=== PATIENT | male | born 1985 | race Caucasian/White ===

== ENCOUNTER 2020-07-04 12:37 | Outpatient (REF) | payer OTHER, SELFPAY | END 2020-07-04 12:38 | disposition home or self-care (01) | LOC: HO.LAB 12:37 | PROVIDERS: Visit Provider Internal Medicine | DX: Z20.828 Contact with and (suspected) exposure to other viral communicable diseases (principal) | CPT/HCPCS: C9803; U0003 ==

== ENCOUNTER 2020-10-18 17:47 | Inpatient (IN) | payer BC, SELFPAY ==
--- NOTE | ~2020-10-18 | CT_ITS ---
EXAMINATION: CT ABDOMEN AND PELVIS WITH CONTRAST CLINICAL INFORMATION: Upper abdominal pain. COMPARISON: ERCP and abdominal ultrasound 02/04/2020 and abdominal MRI and CT abdomen pelvis 02/03/2020 TECHNIQUE: Multidetector volumetric images were obtained from the superior aspect of the liver through the pubic symphysis following administration 85 mL of Omnipaque 350 intravenous contrast. Sagittal and coronal reformatted images were obtained on the technologist's workstation. Oral contrast: No This CT examination was performed using dose optimization techniques as appropriate, variously including the following: *Automated exposure control *Adjustment of mA and/or kV according to patient size (this includes techniques or standardized protocols for targeted exams where dose is matched to indication/reason for exam; i.e. extremities or head) *Use of iterative reconstruction technique DLP: 645 mGy-cm FINDINGS: Visualized lung bases are well aerated. The liver demonstrates normal size, contour and attenuation. 3 mm hypodensity within the posterior right hepatic lobe is too small to accurately characterize. There is mild intrahepatic biliary ductal dilatation. The gallbladder is normal in appearance. The common bile duct is dilated measuring up to 1.3 cm. Common bile duct stent is in place but appears migrated into the distal common bile with only approximately 2 cm of the stent within the common bile duct, the remainder of the stent is within the duodenum. The pancreas is normal in appearance. The spleen and adrenal glands are unremarkable. Symmetrically enhancing kidneys without hydronephrosis. Stable 8 mm nonobstructing calculus within the lower pole the left kidney. The stomach is normal in appearance. Normal caliber loops of small bowel. Mild colonic diverticulosis without CT evidence to suggest active diverticulitis. Mild stool burden throughout the colon. Nonaneurysmal abdominal aorta. No gross retroperitoneal lymphadenopathy. The bladder is well-distended and normal in appearance. The prostate gland is not enlarged. No gross free pelvic fluid. No inguinal lymphadenopathy. Tiny fat-containing left inguinal hernia. No acute osseous abnormality. CT/CT abdomen pelvis w con IMPRESSION: 1. The common bile duct is dilated measuring up to 1.3 cm. Common bile duct stent is in place but appears migrated into the distal common bile with only approximately 2 cm of the stent within the common bile duct, the remainder of the stent is within the duodenum. 2. Unremarkable appearance of the pancreas. 3. 8 mm nonobstructing left renal calculus, stable. 4. Mild colonic diverticulosis.
--- NOTE | ~2020-10-18 | FL_ITS ---
EXAMINATION: XR FLUOROSCOPY WITH IMAGES CLINICAL INFORMATION: Upper abdominal pain. History of common bile duct stent. COMPARISON: Previous CT scan of the abdomen and pelvis most recent 10/18/2020, ERCP February 2020 and MR of the abdomen February 2020 TECHNIQUE: Fluoroscopy performed by Dr. Mariee. Fluoroscopy time: 5.5 minutes DAP: 29 mGycm2 Images: 3 FINDINGS: No common bile duct stent is seen. Initial image demonstrates a wire in the common bile duct. Second image demonstrates contrast opacification of a slightly dilated common bile duct. There is no contrast seen in the distal common bile duct and the distal most portion of the contrast opacified common bile left appears irregular. Final image demonstrates persistent dilatation of the proximal common bile duct and no contrast in the distal common bile duct. Appearance is concerning for a distal common bile duct stricture. Intrahepatic bile ducts are not imaged. FL/FL guidance in OR IMPRESSION: Fluoroscopy guidance for ERCP. Question distal common bile duct stricture.
[2020-10-18 18:20] VITALS: BP 128/96; PULSE 66; RESP 18; TEMP 37.1; O2SAT 99; BMI 31.0
[2020-10-18] MEDS: 0.9 % Sodium Chloride 1,000 ML 999 ML IV (19:06)
[2020-10-18] MEDS: ondansetron HCL 4 MG/2 ML VIAL IVPUSH (19:06)
--- NOTE | 2020-10-18 19:14 | ECG_ITS ---
Test Reason : CHEST PAIN Blood Pressure : / mmHG Vent. Rate : 054 BPM Atrial Rate : 054 BPM P-R Int : 208 ms QRS Dur : 094 ms QT Int : 428 ms P-R-T Axes : 042 -30 -08 degrees QTc Int : 405 ms Sinus bradycardia Left axis deviation Abnormal ECG When compared with ECG of 04-JAN-2020 15:18, No significant change was found Referred By: Reilly Colbert Electronically Signed By:RICKIE GREENBEGR MD
[2020-10-18] MEDS: Famotidine/PF 20 MG/2 ML VIAL IVPUSH (19:16)
[2020-10-18 19:23] VITALS: BP 153/108; PULSE 67; RESP 15; TEMP 37.1; O2SAT 99
--- NOTE | 2020-10-18 19:54 | ED.ABDPAIN ---
HPI - Abdominal Pain General Chief Complaint: Abdominal Pain Stated Complaint: abd pain Time Seen by Provider: 10/18/20 20:31 Source: patient Mode of arrival: ambulatory Limitations: no limitations History of Present Illness HPI narrative: Patient presents to ED for upper abdominal pain for the past 4 days with nausea. Patient states history of pancreatitis that was caused by gallstone. States he had stent placed and bowel duck. Patient states [id number] is similar. Patient denies any chest pain, shortness of breath, or lower abdominal pain. Related Data Home Medications Medication Instructions Recorded Confirmed No Known Home Meds 10/11/20 10/11/20 Allergies Allergy/AdvReac Type Severity Reaction Status Date / Time gadobutrol [From GADAVIST] Allergy Mild HIVES Verified 10/18/20 18:19 Review of Systems Review of Systems Yes all other systems are reviewed and are negative Constitutional: Reports as per HPI and Reports no additional constitutional complaints Eyes: Reports as per HPI and Reports no additional eye complaints Reports system reviewed and no additional complaints, except as documented and Reports as per HPI Cardiovascular: Reports as per HPI and Reports no additional cardiovascular complaints Respiratory: Reports as per HPI and Reports no additional respiratory complaints Gastrointestinal: Reports as per HPI, Reports no additional gastrointestinal complaints, Reports abdominal pain, Reports nausea and Reports vomiting Musculoskeletal: Reports no additional musculoskeletal complaints and Reports as per HPI Reports system reviewed and no additional complaints, except as documented and Reports as per HPI Psychiatric: Reports no additional psychiatric complaints and Reports as per HPI Physical Exam Vital Signs: Vital Signs: Last Vital Signs Temp 98.1 F 10/18/20 20:23 Pulse 59 10/18/20 20:23 Resp 18 10/18/20 20:23 BP 128/95 H 10/18/20 20:23 Pulse Ox 100 10/18/20 20:23 Body Mass Index 31.0 Const: General: cooperative, healthy appearing, comfortable, no acute distress, well developed, alert, awake and Physically active Orientation/consciousness: patient oriented x3 HENMT: Head: Yes normal to inspection, Yes No palpable skull fracture present, Yes normocephalic, Yes atraumatic and No abrasion Eyes: General: appearance normal, both eyes and all related structures Neck: Neck: Yes normal visual inspection, Yes full ROM, Yes no lymphadenopathy, Yes no meningeal signs, Yes trachea midline, Yes supple and No tender Chest: Chest palpation & inspection: normal inspection of the chest and normal palpation of entire chest wall Resp: Effort & Inspection: normal respiratory effort and able to speak in complete sentences Cardio: Jugular venous distension: no JVD Heart sounds: S1 normal heart sound present and S2 normal heart sound present GI: Inspection: No abdominal wall ecchymosis Palpation (GI): Soft to palpation, not firm, Tenderness to palpation present (GI) (Mild upper abdominal tenderness. Negative for guarding rigidity) not in the epigastrum, not in the LLQ, not in the RLQ, not in the LUQ, not in the RUQ, not at McBurney's point, not periumbilically, not suprapubicly, Haddad's sign negative, obturator sign negative, psoas sign negative, with no rebound tenderness and Rovsing's sign negative, no guarding and not rigid : General: No CVA tenderness Back/Spine/Pelvis: Back: no CVA tenderness, No CVA tenderness and No back tenderness Skin: General skin exam: no rashes or lesions noted, elasticity normal and turgor normal Neuro: General: patient oriented x3, no meningeal signs and CN's II-XI intact bilaterally Extrem: General: Yes normal to inspection and Yes full ROM Psych: Appearance: grossly normal and well kempt Course Course Course Narrative: Patient worked the best corrected status per patient will have labs click LFTs and lipase. Patient also had EKG and troponin. Patient Pepcid, Zofran, and IV fluids. Reevaluation(s) Reevaluation #1: Patient given morphine for pain. Patient was sent for CT scan to evaluate for possible gallstone pancreatitis/cholecystitis. Patient states he never had gallbladder removed. Patient have repeat troponin. Case signed out to RUBY Bob. Patient states feeling better Time: 21:19 MDM - Abdominal Pain MDM Narrative Medical decision making narrative: Pancreatitis Lab Data Result diagrams: 10/18/20 19:53 10/18/20 19:53 Labs: Lab Results 10/18/20 10/18/20 10/18/20 Range/Units 19:53 19:53 19:53 WBC 6.4 (4.8-10.8) X10*3/uL RBC 5.31 (4.60-5.80) X10*6/uL Hgb 15.1 (14.0-18.0) g/dl Hct 45.5 (42-52) % MCV 85.7 (80-98) fL MCH 28.4 (27.0-33.0) pg MCHC 33.2 (31.0-36.0) g/dl RDW 12.3 (11.0-16.0) % Plt Count 203 (160-400) X10*3/uL MPV 8.9 L (9.4-12.4) fL Immature Gran % (Auto) 0.3 (0.0-0.4) % Neut % (Auto) 64.4 (45-73) % Lymph % (Auto) 26.5 (20-40) % [place] % (Auto) 6.9 (2-11) % Eos % (Auto) 1.7 (0-4) % Baso % (Auto) 0.2 (0-2) % Lymph # (Auto) 1.7 (1.2-4.9) X10*3/uL [place] # (Auto) 0.4 (0.1-1.2) X10*3/uL Eos # (Auto) 0.1 (0.0-0.4) X10*3/uL Baso # (Auto) 0.0 (0.0-0.2) X10*3/uL Abs Immat Gran (auto) 0.02 (0.00-0.03) X10*3/uL Absolute Neuts (auto) 4.1 (2.0-8.3) X10*3/uL Absolute Nucleated RBC 0.000 (0.0-0.012) X10*3/uL Nucleated RBC % (auto) 0.0 (0.0-0.2) /100WBC PT 12.0 (10.8-13.0) SEC INR 1.0 (0.9-1.1) APTT 28.7 (24.1-38.0) SEC Sodium 138 (135-145) mmol/L Potassium 5.0 (3.3-5.1) mmol/L Chloride 104 (96-108) mmol/L Carbon Dioxide 29 (22-29) mmol/L Anion Gap 10 L (12-20) BUN 15 (9-16) mg/dL Creatinine 1.15 (0.5-1.4) mg/dL Estim Creat Clear Calc 102.1 Estimated GFR > 60 Random Glucose 96 (60-115) mg/dL Calcium 8.7 (8.4-10.2) mg/dL Total Bilirubin 0.9 (0.0-1.0) mg/dL Direct Bilirubin 0.4 (0.0-0.5) mg/dL AST 46 H (5-37) U/L ALT 77 H (0-40) U/L Alkaline Phosphatase 80 (39-117) U/L Troponin I High Sens (<3.5-35.0) ng/L Total Protein 7.0 (6.5-8.0) g/dL Albumin 4.3 (3.5-5.0) g/dL Lipase 6 L (8-78) U/L 10/18/20 Range/Units 19:53 WBC (4.8-10.8) X10*3/uL RBC (4.60-5.80) X10*6/uL Hgb (14.0-18.0) g/dl Hct (42-52) % MCV (80-98) fL MCH (27.0-33.0) pg MCHC (31.0-36.0) g/dl RDW (11.0-16.0) % Plt Count (160-400) X10*3/uL MPV (9.4-12.4) fL Immature Gran % (Auto) (0.0-0.4) % Neut % (Auto) (45-73) % Lymph % (Auto) (20-40) % [place] % (Auto) (2-11) % Eos % (Auto) (0-4) % Baso % (Auto) (0-2) % Lymph # (Auto) (1.2-4.9) X10*3/uL [place] # (Auto) (0.1-1.2) X10*3/uL Eos # (Auto) (0.0-0.4) X10*3/uL Baso # (Auto) (0.0-0.2) X10*3/uL Abs Immat Gran (auto) (0.00-0.03) X10*3/uL Absolute Neuts (auto) (2.0-8.3) X10*3/uL Absolute Nucleated RBC (0.0-0.012) X10*3/uL Nucleated RBC % (auto) (0.0-0.2) /100WBC PT (10.8-13.0) SEC INR (0.9-1.1) APTT (24.1-38.0) SEC Sodium (135-145) mmol/L Potassium (3.3-5.1) mmol/L Chloride (96-108) mmol/L Carbon Dioxide (22-29) mmol/L Anion Gap (12-20) BUN (9-16) mg/dL Creatinine (0.5-1.4) mg/dL Estim Creat Clear Calc Estimated GFR Random Glucose (60-115) mg/dL Calcium (8.4-10.2) mg/dL Total Bilirubin (0.0-1.0) mg/dL Direct Bilirubin (0.0-0.5) mg/dL AST (5-37) U/L ALT (0-40) U/L Alkaline Phosphatase (39-117) U/L Troponin I High Sens 5.3 (<3.5-35.0) ng/L Total Protein (6.5-8.0) g/dL Albumin (3.5-5.0) g/dL Lipase (8-78) U/L ECG Data Interpretation: Sinus bradycardia. Ventricular rate 54. Pr interval 208. QRS duration 94. QTC 405 Discharge Plan Discharge Clinical Impression: Acute pancreatitis Prescriptions: No Action No Known Home Meds RF: 0 PMFSH Past Medical History Medical History (Updated 10/18/20 @ 21:21 by RUBY Alfonso) History of pancreatitis Lumbar pain Obesity Right shoulder pain Surgical History History of appendectomy History of biliary duct stent placement Family History Family History Mother No problems noted. Father No problems noted. Social History Social History (Updated 10/11/20 @ 17:59 by Ro Hopper MD) Alcohol intake: current Alcohol intake frequency: 0-2 drinks per day Alcohol type: beer and hard liquor Smoking Status: Current every day smoker Tobacco Type: E-Cigarette Use of substances other than those prescribed or required for medical reasons: No Advance Directives: No Advance Directives Information Provided: Yes
[2020-10-18 19:58] LABS: MANUAL DIFF FLAG NO
[2020-10-18 20:23] VITALS: BP 128/95; PULSE 59; RESP 18; TEMP 36.7; O2SAT 100
[2020-10-18 20:27] LABS: Basophils Percent Auto 0.2 % (0-2); Eosinophils Absolute Auto 0.1 X10*3/uL (0.0-0.4); Eosinophils Percent Auto 1.7 % (0-4); Hematocrit 45.5 % (42-52); Hemoglobin 15.1 g/dl (14.0-18.0); Imm Gran Abs Auto 0.02 X10*3/uL (0.00-0.03); Imm Gran Pct Auto 0.3 % (0.0-0.4); Lymphocytes Absolute Auto 1.7 X10*3/uL (1.2-4.9); Lymphocytes Percent Auto 26.5 % (20-40); Mean Corpuscular HGB Conc 33.2 g/dl (31.0-36.0); Mean Corpuscular Hemoglobin 28.4 pg (27.0-33.0); Mean Corpuscular Volume 85.7 fL (80-98); Mean Platelet Volume 8.9 fL (9.4-12.4); Monocytes Absolute Auto 0.4 X10*3/uL (0.1-1.2); Monocytes Percent Auto 6.9 % (2-11); Neutrophils Absolute Auto 4.1 X10*3/uL (2.0-8.3); Neutrophils Percent Auto 64.4 % (45-73); Platelet Count 203 X10*3/uL (160-400); Red Blood Count 5.31 X10*6/uL (4.60-5.80); Red Cell Distribution Width 12.3 % (11.0-16.0); White Blood Count 6.4 X10*3/uL (4.8-10.8)
[2020-10-18 20:36] LABS: Alanine Aminotransferase 77 U/L (0-40); Albumin Level 4.3 g/dL (3.5-5.0); Alkaline Phosphatase 80 U/L (39-117); Anion Gap 10 (12-20); Aspartate Amino Transferase 46 U/L (5-37); Bilirubin Direct 0.4 mg/dL (0.0-0.5); Bilirubin Total 0.9 mg/dL (0.0-1.0); Blood Urea Nitrogen 15 mg/dL (9-16); Calcium 8.7 mg/dL (8.4-10.2); Carbon Dioxide 29 mmol/L (22-29); Chloride 104 mmol/L (96-108); Creatinine Clr Calc Pharmacy 102.1; Estimated Glomerular Filt Rate > 60; Glucose Random 96 mg/dL (60-115); Lipase 6 U/L (8-78); Sodium 138 mmol/L (135-145)
[2020-10-18 20:37] LABS: Partial Thromboplastin Time 28.7 SEC (24.1-38.0)
[2020-10-18 20:38] LABS: Troponin-I High Sensitivity 5.3 ng/L (<3.5-35.0)
[2020-10-18 22:00] VITALS: BP 128/95; PULSE 59; RESP 18; O2SAT 100
[2020-10-18 22:13] VITALS: BP 148/97; PULSE 59; RESP 18; TEMP 37.1; O2SAT 100
[2020-10-18 22:18] VITALS: RESP 15
[2020-10-18] MEDS: Morphine Sulfate 4 MG/ML CARTRIDGE IVPUSH (22:18)
[2020-10-18 23:47] LABS: Troponin-I High Sensitivity 4.8 ng/L (<3.5-35.0)
[2020-10-19] VITALS (20 sets, daily range): BP systolic 122–156; BP diastolic 54–105; PULSE 46–101; RESP 12–20; TEMP 36–36.9; O2SAT 95–100; BMI 31.7
--- NOTE | 2020-10-19 00:07 | PM.IMHP ---
History of Present Illness Date of Service: 10/19/20 Chief Complaint: Abdominal pain 35-year-old male With a past medical history of gallstone pancreatitis, status post CBD stent presented to the hospital today with a chief complaint of abdominal pain for the past 4 days. located in the epigastrium; gradually worsening Denies any chest pain palpitations. denies nausea and vomiting. Denies any fever chills cough. Denies any diarrhea. Denies any urinary symptoms. Mentions poor intake due to pain. Review of all other systems is negative except mentioned above ER course: For ER team patient takes of noted to have tenderness in her mostly in the epigastrium. CT scan 1.3 centimetres, CBD stent appears to be migrated to the distal CBD and also into the duodenum. Also noted 80 mm nonobstructing left renal calculus stable. ER team discussed with Dr. Garcia from Gastroenterology who recommended admission to Medicine Service for the will remove the stent in the morning after evaluation. [facility] Medical History History of pancreatitis Lumbar pain Obesity Right shoulder pain Family History Mother No problems noted. Father No problems noted. Surgical History History of appendectomy History of biliary duct stent placement Social History Household Members: Spouse Housing: Apartment Do you presently have visiting nurse or other home services: No Alcohol intake: current Alcohol intake frequency: 0-2 drinks per day Alcohol type: beer and hard liquor Smoking Status: Current every day smoker Tobacco Type: E-Cigarette Use of substances other than those prescribed or required for medical reasons: Yes Substance Use Type: Marijuana Substance Use Frequency: Occasionally Last Used Substance: Days (ago) Currently Displaying Signs/Symptoms of Drug Intoxication Withdrawal: No Any prior treatment program specific to substance use: No Have you been hit, kicked, punched, or otherwise hurt by someone within the past year? If so, by whom?: No Do you feel safe in your current relationship?: Yes Is there a partner from a previous relationship who is making you feel unsafe now?: No Are you made to feel afraid or neglected: No Advance Directives: No Advance Directives Information Provided: Yes Do you have thoughts of harming others: None Do you have a plan to hurt others: No Plan Recently lost weight without trying: No service: No Current occupational status: employed Meds Allergies Allergy/AdvReac Type Severity Reaction Status Date / Time gadobutrol [From GADAVIST] Allergy Mild HIVES Verified 10/18/20 18:19 Active Medications: Current Medications Generic Name Dose Route Start Last Admin Trade Name Freq PRN Reason Stop Dose Admin Hydromorphone HCl 0.5 mg 10/19/20 00:03 Hydromorphone Hcl 0.5 Mg/0.5 Ml Syringe IVPUSH Q4H PRN Pain, Severe (Pain Scale 7-10) Dextrose/Sodium Chloride 1,000 mls @ 100 mls/hr 10/19/20 00:15 D51/2ns IVCONT .Q10H RUBEN Sodium Chloride 3 ml 10/19/20 08:00 0.9 % Sodium Chloride Flush 3 Ml Syringe IVFLUSH Q[facility] Home Medications Medication Instructions Recorded Confirmed Last Taken Type ascorbic acid (vitamin C) [Vitamin 500 mg PO DAILY 10/19/20 10/19/20 Unknown History C] cholecalciferol (vitamin D3) 25 mcg PO DAILY 10/19/20 10/19/20 Unknown History multivitamin 1 tab PO DAILY 10/19/20 10/19/20 Unknown History Physical Exam Vital Signs and Narrative: Vital Signs: Last Vital Signs Temp 98.7 F 10/18/20 22:13 Pulse 59 10/18/20 22:13 Resp 15 10/18/20 22:18 BP 148/97 H 10/18/20 22:13 Pulse Ox 100 10/18/20 22:13 Body Mass Index 31.0 Resp: Other: Gen: Appears be in no acute distress HEENT: NCAT, Moist mucosa. Pulmonary: Vesicular breath sounds, fair air entry CVS: Normal S1-S2 Abdomen: BS+, Soft, mildly tender in the epigastrium; no guarding no rigidity Extremities: Warm well perfused Neuro: Alert and awake. Results Labs CBC and Chem 7: 10/19/20 09:21 10/19/20 09:21 Labs: Laboratory Results - last 24 hr 10/18/20 10/18/20 10/18/20 19:53 19:53 19:53 MCV 85.7 MCH 28.4 MCHC 33.2 RDW 12.3 Plt Count 203 MPV 8.9 L Immature Gran % (Auto) 0.3 Neut % (Auto) 64.4 Lymph % (Auto) 26.5 [place] % (Auto) 6.9 Eos % (Auto) 1.7 Baso % (Auto) 0.2 Lymph # (Auto) 1.7 [place] # (Auto) 0.4 Eos # (Auto) 0.1 Baso # (Auto) 0.0 Abs Immat Gran (auto) 0.02 Absolute Neuts (auto) 4.1 Absolute Nucleated RBC 0.000 Nucleated RBC % (auto) 0.0 PT 12.0 INR 1.0 APTT 28.7 Anion Gap 10 L Estim Creat Clear Calc 102.1 Estimated GFR > 60 Random Glucose 96 Calcium 8.7 Total Bilirubin 0.9 Direct Bilirubin 0.4 AST 46 H ALT 77 H Alkaline Phosphatase 80 Troponin I High Sens Total Protein 7.0 Albumin 4.3 Lipase 6 L 10/18/20 10/18/20 19:53 23:02 MCV MCH MCHC RDW Plt Count MPV Immature Gran % (Auto) Neut % (Auto) Lymph % (Auto) [place] % (Auto) Eos % (Auto) Baso % (Auto) Lymph # (Auto) [place] # (Auto) Eos # (Auto) Baso # (Auto) Abs Immat Gran (auto) Absolute Neuts (auto) Absolute Nucleated RBC Nucleated RBC % (auto) PT INR APTT Anion Gap Estim Creat Clear Calc Estimated GFR Random Glucose Calcium Total Bilirubin Direct Bilirubin AST ALT Alkaline Phosphatase Troponin I High Sens 5.3 4.8 Total Protein Albumin Lipase Imaging Radiologist's Impressions: Impressions Abdomen/Pelvis CT 10/18/20 21:04 IMPRESSION: 1. The common bile duct is dilated measuring up to 1.3 cm. Common bile duct stent is in place but appears migrated into the distal common bile with only approximately 2 cm of the stent within the common bile duct, the remainder of the stent is within the duodenum. 2. Unremarkable appearance of the pancreas. 3. 8 mm nonobstructing left renal calculus, stable. 4. Mild colonic diverticulosis. Assessment and Plan (1) Abdominal pain: Status: Resolved 35-year-old male with a past medical history of gallstone pancreatitis status post CBD stent presented to the hospital with a chief complaint of abdominal pain for [address] scan noted to have migrated CBD stent. Admitted to the hospital for further management. Abdominal pain: Likely in the setting of migration of the CBD stent. CBD also dilated to 1.[address] Gastroenterology recommended admission for possible CBD stent removal. Pain control. Supportive care. NPO IV fluids Mild transaminitis: Improved compared to prior values. Will continue to monitor. DVT prophylaxis: SCD boots Code status: Full code (2) Biliary stricture: Status: Acute (3) Elevated LFTs: Status: Acute
[2020-10-19] MEDS: HYDROmorphone HCl 0.5 MG/0.5 ML SYRINGE IVPUSH ×5 (00:30→22:04)
[2020-10-19] MEDS: Dextrose 5 % and 0.45 % NaCl 1,000 ML 100 ML IVCONT ×3 (01:55→21:17)
[2020-10-19 04:37] LABS: COVID-19 Test Negative (Negative)
--- NOTE | 2020-10-19 07:30 | PC.NURSE ---
pt a/o x 3 no sob/john noted skin pink warm dry speaks in full sentences. pt aware of plan of care for admission to hosp.
[2020-10-19] MEDS: 0.9 % Sodium Chloride Flush 3 ML SYRINGE IVFLUSH ×2 (07:44→17:40)
[2020-10-19 09:26] LABS: MANUAL DIFF FLAG NO
--- NOTE | 2020-10-19 09:26 | MHC.CM.PN ---
pt lives c his s.o. in their apt. he reports that he is independent in his care. his s.o. can help him c his needs if necessary, this will include a ride home at dc. pt denies the need for vna at dc. dc plan is home no svcs. cm to cont. to follow.
[2020-10-19 09:28] LABS: Basophils Percent Auto 0.1 % (0-2); Eosinophils Absolute Auto 0.1 X10*3/uL (0.0-0.4); Eosinophils Percent Auto 1.3 % (0-4); Hematocrit 44.8 % (42-52); Imm Gran Abs Auto 0.01 X10*3/uL (0.00-0.03); Imm Gran Pct Auto 0.1 % (0.0-0.4); Lymphocytes Absolute Auto 1.9 X10*3/uL (1.2-4.9); Lymphocytes Percent Auto 27.9 % (20-40); Mean Corpuscular HGB Conc 33.5 g/dl (31.0-36.0); Mean Corpuscular Hemoglobin 28.8 pg (27.0-33.0); Mean Corpuscular Volume 86.2 fL (80-98); Mean Platelet Volume 8.5 fL (9.4-12.4); Monocytes Absolute Auto 0.5 X10*3/uL (0.1-1.2); Monocytes Percent Auto 7.1 % (2-11); Neutrophils Absolute Auto 4.4 X10*3/uL (2.0-8.3); Neutrophils Percent Auto 63.5 % (45-73); Platelet Count 181 X10*3/uL (160-400); Red Cell Distribution Width 12.3 % (11.0-16.0); White Blood Count 6.9 X10*3/uL (4.8-10.8)
--- NOTE | 2020-10-19 09:51 | PC.NURSE ---
nurse to nurse given to antonio (alejo), pt aware of plan of care for admission to hosp.
[2020-10-19 09:57] LABS: Anion Gap 8 (12-20); Blood Urea Nitrogen 9 mg/dL (9-16); Calcium 8.5 mg/dL (8.4-10.2); Carbon Dioxide 31 mmol/L (22-29); Chloride 102 mmol/L (96-108); Estimated Glomerular Filt Rate > 60; Glucose Random 103 mg/dL (60-115); Potassium 4.1 mmol/L (3.3-5.1); Sodium 137 mmol/L (135-145)
--- NOTE | 2020-10-19 11:11 | PC.NURSE ---
Per Dr. Caban, patient does not need campus monitor. will change pt admission order from telemetry to medical/surgical.
--- NOTE | 2020-10-19 12:49 | HO.PM.IMPN ---
Subjective Subjective Date of Service: 10/19/20 Interval History: Patient seen and examined at bedside Patient was reporting some abdominal pain Constitutional Constitutional: Reports as per HPI and Reports no additional constitutional complaints Eyes Eyes: Reports as per HPI and Reports no additional eye complaints ENT Ears, Nose, Mouth, and Throat: Reports system reviewed and no additional complaints, except as documented and Reports as per HPI Cardiovascular Cardiovascular: Reports as per HPI and Reports no additional cardiovascular complaints Respiratory Respiratory: Reports as per HPI and Reports no additional respiratory complaints Gastrointestinal Gastrointestinal: Reports as per HPI, Reports no additional gastrointestinal complaints, Reports abdominal pain, Reports nausea and Reports vomiting Musculoskeletal Musculoskeletal: Reports no additional musculoskeletal complaints and Reports as per HPI Neurologic Neurologic: Reports system reviewed and no additional complaints, except as documented and Reports as per HPI Psychiatric Psychiatric: Reports no additional psychiatric complaints and Reports as per HPI Physical Exam Vital Signs: Vital Signs: Last Vital Signs Temp 97.2 F 10/19/20 11:54 Pulse 63 10/19/20 11:54 Resp 15 10/19/20 11:54 BP 122/88 10/19/20 11:54 Pulse Ox 97 10/19/20 11:54 Body Mass Index 31.0 Resp: Other: Gen: Appears be in no acute distress HEENT: NCAT, Moist mucosa. Pulmonary: Vesicular breath sounds, fair air entry CVS: Normal S1-S2 Abdomen: BS+, Soft, mildly tender in the epigastrium; no guarding no rigidity Extremities: Warm well perfused Neuro: Alert and awake. Objective Data Current Medications Generic Name Dose Route Start Last Admin Trade Name Freq PRN Reason Stop Dose Admin Hydromorphone HCl 0.5 mg 10/19/20 00:03 10/19/20 09:42 Hydromorphone Hcl 0.5 Mg/0.5 Ml Syringe IVPUSH 0.5 mg Q4H PRN Administration Pain, Severe (Pain Scale 7-10) Dextrose/Sodium Chloride 1,000 mls @ 100 mls/hr 10/19/20 00:15 10/19/20 11:34 D51/2ns IVCONT 100 mls/hr .Q10H RUBEN Administration Sodium Chloride 3 ml 10/19/20 08:00 10/19/20 07:44 0.9 % Sodium Chloride Flush 3 Ml Syringe IVFLUSH 3 ml QSHIFT RUBEN Administration Labs CBC & Chem 7: 10/19/20 09:21 10/19/20 09:21 Assessment and Plan (1) Abdominal pain: Status: Acute Assessment and Plan: 35-year-old male with a past medical history of gallstone pancreatitis status post CBD stent presented to the hospital with a chief complaint of abdominal pain for [address] scan noted to have migrated CBD stent. Admitted to the hospital for further management. Abdominal pain Likely in the setting of migration of the CBD stent. CT shows CBD dilatation 1.3 centimetres GI consulted Continue NPO for possible procedure by GI Continue IV fluids Mild transaminitis Trending down DVT prophylaxis: SCD boots Code status: Full code
--- NOTE | 2020-10-19 12:53 | P.EN_ITS ---
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 This was treated with a biliary stent and balloon dilation. He had a negative EUS and brushings of the stricture. He never came back for F/U at [facility] nor with me. He now presents with new upper abdominal pain, but no jaundice. The CT shows that the biliary stent is almost out of the CBD, although his LFT's and lipase are OK. He presently feels well and denies pain. His abdominal exam is benign. Rec: ERCP with [facility] today by Dr. Mariee to remove the stent, repeat cholangiograms, and decide re: need for further dilation and/or replacement of the biliary stent. Full consent has been obtained from the patient for this, including risks of bleeding, perforation, cholangitis, and pancreatitis. The patient understands and is comfortable with this plan. Thanks
[2020-10-19] MEDS: levoFLOXacin/D5W 500 MG/100 ML PIGGYBACK 100 MG IV (13:00)
--- NOTE | 2020-10-19 13:18 | HO.ANESPROP2 ---
COUNTS INCLUDE 234 BEDS AT THE [facility] Active Problems Active Problems: All Active Problems (Updated 10/19/20 @ 00:29 by Mati Denton MD) Abdominal pain (Acute) Acute pancreatitis (Acute) Lumbar pain (Acute) Right shoulder pain (Acute) Obesity (Acute) Past Medical History Medical History History of pancreatitis Lumbar pain Obesity Right shoulder pain Family History Family History Mother No problems noted. Father No problems noted. Surgical History Surgical History History of appendectomy History of biliary duct stent placement Social History Social History Household Members: Spouse Housing: Apartment Do you presently have visiting nurse or other home services: No Alcohol intake: current Alcohol intake frequency: 0-2 drinks per day Alcohol type: beer and hard liquor Smoking Status: Current every day smoker Tobacco Type: E-Cigarette Use of substances other than those prescribed or required for medical reasons: Yes Substance Use Type: Marijuana Substance Use Frequency: Occasionally Last Used Substance: Days (ago) Currently Displaying Signs/Symptoms of Drug Intoxication Withdrawal: No Any prior treatment program specific to substance use: No Have you been hit, kicked, punched, or otherwise hurt by someone within the past year? If so, by whom?: No Do you feel safe in your current relationship?: Yes Is there a partner from a previous relationship who is making you feel unsafe now?: No Are you made to feel afraid or neglected: No Advance Directives: No Advance Directives Information Provided: Yes Do you have thoughts of harming others: None Do you have a plan to hurt others: No Plan Recently lost weight without trying: No service: No Current occupational status: employed Meds Allergies Allergy/AdvReac Type Severity Reaction Status Date / Time gadobutrol [From GADAVIST] Allergy Mild HIVES Verified 10/18/20 18:19 Active Medications: Current Medications Generic Name Dose Route Start Last Admin Trade Name Freq PRN Reason Stop Dose Admin Hydromorphone HCl 0.5 mg 10/19/20 00:03 10/19/20 09:42 Hydromorphone Hcl 0.5 Mg/0.5 Ml Syringe IVPUSH 0.5 mg Q4H PRN Administration Pain, Severe (Pain Scale 7-10) Dextrose/Sodium Chloride 1,000 mls @ 100 mls/hr 10/19/20 00:15 10/19/20 11:34 D51/2ns IVCONT 100 mls/hr .Q10H RUBEN Administration Sodium Chloride 3 ml 10/19/20 08:00 10/19/20 07:44 0.9 % Sodium Chloride Flush 3 Ml Syringe IVFLUSH 3 ml QSHIFT RUBEN Administration Home Medications Medication Instructions Recorded Confirmed Last Taken Type ascorbic acid (vitamin C) [Vitamin 500 mg PO DAILY 10/19/20 10/19/20 Unknown History C] cholecalciferol (vitamin D3) 25 mcg PO DAILY 10/19/20 10/19/20 Unknown History multivitamin 1 tab PO DAILY 10/19/20 10/19/20 Unknown History Exam Exam Date and Time: October 19, 2020 1318 Height,Weight and Vital Signs: Height 5 ft 9 in Weight 97.522 kg Last Vital Signs Temp 97.9 F 10/19/20 13:06 Pulse 57 10/19/20 13:06 Resp 18 10/19/20 13:06 BP 139/84 10/19/20 13:06 Pulse Ox 98 10/19/20 13:06 Pertinent Lab Results Pertinent Lab Results: Laboratory Tests 10/18/20 10/18/20 10/18/20 19:53 19:53 19:53 WBC 6.4 RBC 5.31 Hgb 15.1 Hct 45.5 MCV 85.7 MCH 28.4 MCHC 33.2 RDW 12.3 Plt Count 203 MPV 8.9 L Immature Gran % (Auto) 0.3 Neut % (Auto) 64.4 Lymph % (Auto) 26.5 [place] % (Auto) 6.9 Eos % (Auto) 1.7 Baso % (Auto) 0.2 Lymph # (Auto) 1.7 [place] # (Auto) 0.4 Eos # (Auto) 0.1 Baso # (Auto) 0.0 Abs Immat Gran (auto) 0.02 Absolute Neuts (auto) 4.1 Absolute Nucleated RBC 0.000 Nucleated RBC % (auto) 0.0 PT 12.0 INR 1.0 APTT 28.7 Sodium 138 Potassium 5.0 Chloride 104 Carbon Dioxide 29 Anion Gap 10 L BUN 15 Creatinine 1.15 Estim Creat Clear Calc 102.1 Estimated GFR > 60 Random Glucose 96 Calcium 8.7 Total Bilirubin 0.9 Direct Bilirubin 0.4 AST 46 H ALT 77 H Alkaline Phosphatase 80 Troponin I High Sens Total Protein 7.0 Albumin 4.3 Lipase 6 L COVID-19 (PATRICIA) COVID-19 Clin Com 10/18/20 10/18/20 10/19/20 19:53 23:02 04:10 WBC RBC Hgb Hct MCV MCH MCHC RDW Plt Count MPV Immature Gran % (Auto) Neut % (Auto) Lymph % (Auto) [place] % (Auto) Eos % (Auto) Baso % (Auto) Lymph # (Auto) [place] # (Auto) Eos # (Auto) Baso # (Auto) Abs Immat Gran (auto) Absolute Neuts (auto) Absolute Nucleated RBC Nucleated RBC % (auto) PT INR APTT Sodium Potassium Chloride Carbon Dioxide Anion Gap BUN Creatinine Estim Creat Clear Calc Estimated GFR Random Glucose Calcium Total Bilirubin Direct Bilirubin AST ALT Alkaline Phosphatase Troponin I High Sens 5.3 4.8 Total Protein Albumin Lipase COVID-19 (PATRICIA) Negative COVID-19 Clin Com See Note 10/19/20 10/19/20 09:21 09:21 WBC 6.9 RBC 5.20 Hgb 15.0 Hct 44.8 MCV 86.2 MCH 28.8 MCHC 33.5 RDW 12.3 Plt Count 181 MPV 8.5 L Immature Gran % (Auto) 0.1 Neut % (Auto) 63.5 Lymph % (Auto) 27.9 [place] % (Auto) 7.1 Eos % (Auto) 1.3 Baso % (Auto) 0.1 Lymph # (Auto) 1.9 [place] # (Auto) 0.5 Eos # (Auto) 0.1 Baso # (Auto) 0.0 Abs Immat Gran (auto) 0.01 Absolute Neuts (auto) 4.4 Absolute Nucleated RBC 0.000 Nucleated RBC % (auto) 0.0 PT INR APTT Sodium 137 Potassium 4.1 Chloride 102 Carbon Dioxide 31 H Anion Gap 8 L BUN 9 Creatinine 0.97 Estim Creat Clear Calc 121.0 Estimated GFR > 60 Random Glucose 103 Calcium 8.5 Total Bilirubin Direct Bilirubin AST ALT Alkaline Phosphatase Troponin I High Sens Total Protein Albumin Lipase COVID-19 (PATRICIA) COVID-19 Clin Com Airway Mallampati Class: II TM Dist: >3cm Neck ROM: Full Assessment and Plan Assessment Anesthesia Assessment: Anesthesia Plan Discussed and Chart Reviewed Final Anesthetic Review NPO: Yes ASA Class: II Final Preanesthetic Review: No Changes in Pt Med Stat, Meds/Allgs Chart Reviewed, Consent Obtained/Reviewed and Anes Risks/Benef Reviewed Patient Risk: Low Procedure Risk: Low Assessment/Block/Sedation in SS: Assess/Block/Sedation-SS Anesthetic Plan Anesthetic Plan: GA Disposition: Standard PACU
--- NOTE | 2020-10-19 14:06 | MHC.SHP ---
Pre-Procedural Eval Section A The patient is an INPATIENT: Yes Changes since office visit: No Cold of Flu in the past 2 weeks, No New Medical Problems, No Changes in Medication and No Patient answered all questions The History & Physical has been completed within 30 days and I have reviewed it.: Yes Section B Chief Complaint: Abd pain Allergies: Allergies Allergy/AdvReac Type Severity Reaction Status Date / Time gadobutrol [From GADAVIST] Allergy Mild HIVES Verified 10/18/20 18:19 Plan I have reviewed the history and physical and performed a pertinent physical examination on my patient. No changes have occurred unless specified.
--- NOTE | 2020-10-19 15:14 | PM.OP ---
Brief Operative Note Date of Service: 10/19/20 Pre-op diagnosis: biliary stricture Post-op diagnosis: same Procedure: ERCP Surgeon: Neville Mariee Estimated blood loss (mL): 0 Pathology: other (biliary stricture brushings) Condition: stable Disposition: PACU
--- NOTE | 2020-10-19 15:19 | PM.EVENT ---
Event Note Date of Service: 10/19/20 Event Note: ERCP dictated biliary stent migrated, mostly in duodenum, removed with snare. cholangiogram showed 2.5 cm distal biliary stricture. balloon dilation done and brushings obtained 12 mm balloon used to sweep duct, no stones seen good drainage of clear bile, residual waist on distal cbd no stent placed. advance diet recheck lfts.
--- NOTE | 2020-10-19 16:28 | OP_ITS ---
SURGEON: Neville Mariee MD INDICATIONS: Biliary stricture. PREOPERATIVE DIAGNOSIS: POSTOPERATIVE DIAGNOSIS: PROCEDURE PERFORMED: ERCP with removal of biliary stent, balloon dilation of biliary stricture, and biliary stricture brushings. ESTIMATED BLOOD LOSS: COMPLICATIONS: ANESTHESIA: ASSISTANTS: SPECIMENS: MEDICATIONS: Monitored anesthesia care. DESCRIPTION OF PROCEDURE: History and physical performed. The risks and benefits of the procedure were explained to the patient. Informed consent was obtained. The patient was placed in the prone position with a wedge under the right shoulder. The Olympus therapeutic duodenoscope was introduced into the esophagus, stomach, and duodenum. Examination was performed. The scope was removed. He tolerated the procedure well and was taken to recovery area in stable condition. FINDINGS: Limited examination of the esophagus, stomach, and duodenum was within normal limits. There was a previously placed biliary stent protruding from the major papilla. The stent was in a migrated position with most of the stent present in the duodenum. The stent was removed by grasping the stent with a snare and removing the endoscope and snare from the patient. Next, the endoscope was reinserted. Cholangiography was obtained after passing a sphincterotome into the common bile duct without difficulty. The sphincterotomy appeared adequate. There was an approximately 2 to 2.5 cm distal biliary stricture. This was dilated with an 8 mm biliary balloon for 2 consecutive inflations over the distal bile duct. Next, cytology brushings were obtained. There was a questionable filling defect in the mid bile duct and a 12 mm balloon extraction catheter was passed. The balloon was inflated and the catheter passed through this stricture with minimal resistance. No stone was seen to be removed. There appeared to be excellent drainage from the common bile duct at this point, and there was still some stricturing present; however, it was judged adequate for drainage and no stent was reinserted. No pancreatogram was attempted or obtained. IMPRESSION: Biliary stricture, status post balloon dilation, brushings, and removal of migrated biliary stent. RECOMMENDATIONS: 1. Follow up the brushing results. 2. Monitor clinically. MD MORIAH Schmidt/GUY / [id number] MTDD
[2020-10-20] MEDS: HYDROmorphone HCl 0.5 MG/0.5 ML SYRINGE IVPUSH (02:42)
[2020-10-20 03:59] VITALS: BP 117/96; PULSE 97; RESP 20; TEMP 36.4; O2SAT 95
[2020-10-20 07:06] LABS: Alanine Aminotransferase 312 U/L (0-40); Albumin Level 4.4 g/dL (3.5-5.0); Alkaline Phosphatase 119 U/L (39-117); Aspartate Amino Transferase 231 U/L (5-37); Bilirubin Direct 1.5 mg/dL (0.0-0.5); Bilirubin Total 2.7 mg/dL (0.0-1.0); Total Protein 7.3 g/dL (6.5-8.0)
[2020-10-20 07:48] VITALS: BP 151/90; PULSE 83; RESP 16; TEMP 36.7; O2SAT 96
--- NOTE | 2020-10-20 09:00 | CONS_ITS ---
DATE OF SERVICE: 10/19/2020 REASON FOR CONSULTATION: Abdominal pain and history of previously placed biliary stent for biliary stricture. HISTORY OF PRESENT ILLNESS: History has been obtained from the patient and the medical records. The patient is a 35-year-old male whom I met last February for evaluation of alcohol-induced pancreatitis with resultant obstructive jaundice. His workup at that time revealed a distal biliary stricture on ERCP. Brushings from the stricture and a CA19-9 level was normal. Then, a biliary stent was placed for relief of the obstructive jaundice. Thereafter, he was referred to [facility] to Dr. Conn to perform an endoscopic ultrasound, which was unremarkable. There was no sign of any pancreatic mass. The biliary stricture was dilated with a balloon and a biliary stent was placed at that time again. He was supposed to follow up with Dr. Conn for further dilation of the biliary stricture and biliary stent removal, but he never came back for followup with him nor my office despite repeated attempts to contact him.. In any event, the patient reports he had been feeling very well, until he developed abdominal pain and came to the ER for evaluation. He did not notice any jaundice nor fevers. He denied having vomiting. His bowel movements had been regular and without any sign of bleeding. MEDICATIONS: At home included vitamins. Medications here in the hospital include acetaminophen, Dilaudid p.r.n., morphine p.r.n., Zofran p.r.n. 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 Previous alcohol abuse. He denies any medical problems, such as heart disease, diabetes, asthma, no stroke. PAST SURGICAL HISTORY: He has had an appendectomy. SOCIAL HISTORY: He is . 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 He vapes. He denies any significant alcohol use since summer. FAMILY HISTORY: Noncontributory. PHYSICAL EXAMINATION: GENERAL: Upon examination, the patient is pleasant, alert, comfortable male. HEENT: Anicteric sclerae. NECK: Supple. CHEST: Clear. CARDIAC: Normal S1, S2. ABDOMEN: Soft, nondistended. Bowel sounds are present. Nontender. There is no mass. LABORATORY DATA: Normal CBC with platelet count. Normal PT with INR. Normal electrolytes. BUN 9, creatinine 1.0, total bilirubin is 0.9, AST 46, ALT 77, alk phos 80, lipase 6. His CAT scan of the abdomen described the biliary stent to be partially migrated into the duodenum with only the distal portion of the common bile duct stent present in the distal portion of the bile duct. Pancreas appeared normal. IMPRESSION: Given the patient's clinical history, his pain may be likely due to the migrated biliary stent. His LFT's are unremarkable but the bile duct was dilated. At this point, he does need the stent removed. He will undergo an ERCP today with removal of the biliary stent. At that time, cholangiograms can be obtained to reinspect the area of the biliary stricture and perform balloon dilation if indicated. The procedure will be done by Dr. Mariee. Full consent has been obtained for this, including risks of bleeding, perforation, cholangitis, and pancreatitis. This has been discussed in detail with the patient and he is comfortable with this plan. In the meantime, he will be observed and receive supportive care. Thank you for this consultation. MD LONNY Butler/GUY / [id number] MTDShanthi
[2020-10-20] MEDS: Dextrose 5 % and 0.45 % NaCl 1,000 ML 100 ML IVCONT (09:01)
[2020-10-20] MEDS: oxyCODONE HCl Immed Release 5 MG TABLET PO (09:08)
--- NOTE | 2020-10-20 11:19 | P.PNGI_ITS ---
Subjective Subjective Date of Service: 10/20/20 Interval History: had some pain post procedure in RUQ, feels better today tolerated diet Physical Exam Vital Signs: Vital Signs: Last Vital Signs Temp 98.1 F 10/20/20 07:48 Pulse 83 10/20/20 07:48 Resp 16 10/20/20 07:48 BP 151/90 H 10/20/20 07:48 Pulse Ox 96 10/20/20 07:48 Body Mass Index 31.7 Objective Data Labs CBC & Chem 7: 10/19/20 09:21 10/19/20 09:21 Labs: Laboratory Results - last 24 hr 10/20/20 06:06 Total Bilirubin 2.7 H Direct Bilirubin 1.5 H AST 231 H ALT 312 H Alkaline Phosphatase 119 H D Total Protein 7.3 Albumin 4.4 Progress Note: A&P Assessment and plan (1) Biliary stricture: Status: Acute Assessment and Plan: doing well post ERCP lft elevations may be secondary to procedural interventions (cholangiography, stricture dilation, and balloon sweeps) as opposed to obstruction from strictur e. Should be ok for discharge and f/u lfts next week. Time Spent With Patient Time: Total time spent is greater than 50% in coordination of care (as documented) at patient's floor/unit and/or counseling patient: Time with patient: 15 - 24 minutes
[2020-10-20 11:28] VITALS: BP 131/95; PULSE 89; RESP 16; TEMP 36.6; O2SAT 97
--- NOTE | 2020-10-20 12:08 | P.DS_ITS ---
DS: Providers Provider Date of Service: 10/20/20 Date of admission: 10/19/20 00:03 Primary care physician: Ro Hopper MD Consults: 10/18/20 23:57 Consult to Gastroenterology Stat Consulting Provider: Juany Reyes Reason for consultation: CDB stent migration Has provider been notified: Yes 10/19/20 00:03 Consult to Gastroenterology Routine Consulting Provider: Juany Reyes Reason for consultation: Abd pain; hx CBD stent DS: Diagnosis Discharge Diagnosis (1) Biliary stricture: Status: Acute DS: Medications Discharge Medications Home Medications: Home Medications Medication Instructions Recorded Confirmed ascorbic acid (vitamin C) [Vitamin 500 mg PO DAILY 10/19/20 10/19/20 C] cholecalciferol (vitamin D3) 25 mcg PO DAILY 10/19/20 10/19/20 multivitamin 1 tab PO DAILY 10/19/20 10/19/20 DS: Summary Hospital Course Hospital Course: HPI 35-year-old male With a past medical history of gallstone pancreatitis, status post CBD stent presented to the hospital today with a chief complaint of abdominal pain for the past 4 days. located in the epigastrium; gradually worsening Denies any chest pain palpitations. denies nausea and vomiting. Denies any fever chills cough. Denies any diarrhea. Denies any urinary symptoms. Mentions poor intake due to pain. Review of all other systems is negative except mentioned above ER course: For ER team patient takes of noted to have tenderness in her mostly in the epigastrium. CT scan 1.3 centimetres, CBD stent appears to be migrated to the distal CBD and also into the duodenum. Also noted 80 mm nonobstructing left renal calculus stable. ER team discussed with Dr. Garcia from Gastroenterology who recommended admission to Medicine Service for the will remove the stent in the morning after evaluation. hospital course 35-year-old male admitted with abdominal pain, CT abdomen shows migration of CBD stent, LFTs were normal on admission, patient was seen by Gastroenterology, patient underwent ERCP with removal of stent, patient was also found to have CBD stricture balloon dilatation was done, patient's abdominal pain was resolved, patient was tolerating regular diet, patient's LFTs trended up post procedure, patient was seen by Gastroenterology Dr. Desai recommended LFT elevated LFTs likely secondary to post procedure, gastroenterology cleared patient for discharge, patient was stable discharged home patient will have repeat LFTs on 10/24 and patient will follow-up gastroenterology Dr. Desai in 2 weeks Time Spent with Patient Time attestation: Total time spent providing and/or coordinating discharge services: Discharge coordination time: Greater than 30 minutes Physical Exam Vital Signs: Vital Signs: Last Vital Signs Temp 97.8 F 10/20/20 11:28 Pulse 89 10/20/20 11:28 Resp 16 10/20/20 11:28 BP 131/95 H 10/20/20 11:28 Pulse Ox 97 10/20/20 11:28 Body Mass Index 31.7 DS: Data Data Completed and Pending Pending studies at discharge: Pending at discharge 10/19/20 14:59 Cytology [PTH] Routine Labs on day of discharge: Laboratory Results - last 24 hr 10/20/20 06:06 Total Bilirubin 2.7 H Direct Bilirubin 1.5 H AST 231 H ALT 312 H Alkaline Phosphatase 119 H D Total Protein 7.3 Albumin 4.4 Discharge Plan Discharge Anticipated Discharge Date/Time: 10/20/20 11:59 Patient Disposition: Home, Self-Care Referrals: Neville Desai [Physician] - (follow up with dr desai in 2 weeks) Ro Paul MD [Primary Care Provider] - Discharge Medications: Continued multivitamin Tablet 1 tab PO DAILY RF: 0 ascorbic acid (vitamin C) [Vitamin C] 500 mg Tablet 500 mg PO DAILY RF: 0 cholecalciferol (vitamin D3) 25 mcg (1,000 unit) Tablet 25 mcg PO DAILY RF: 0 Discharge Orders: Discharge Order (Routine); Ordered 10/20/20 Ordered By: Rasheed Caban Diet: advance to usual diet Activity on Discharge: As tolerated Stand Alone Forms: Patient Portal Discharge page Other Ambulatory Orders: Liver Panel (Routine) Timeframe: 20201024 Facility: [facility] - Location: Laboratory Ordered By: Rasheed Caban Care Plan Goals: prevent stricture Health Concerns: bilary stricture Plan of Treatment: s/p dilation follow up dr mcconnell ,repeat lfts on 10/24/20 Discharge Date/Time: 10/20/20 13:25
--- NOTE | 2020-10-20 13:09 | MHC.CM.PN ---
Pt will DC home today with no services pt self arranged transport
--- NOTE | 2020-10-20 14:27 | HO.POSTANES ---
Post Anesthesia Evaluation Post Anesthesia Evaluation Vital Signs: Vital Signs Temp Pulse Resp BP Pulse Ox 10/20/20 11:28 97.8 F 89 16 131/95 H 97 10/20/20 07:48 98.1 F 83 16 151/90 H 96 10/20/20 03:59 97.6 F 97 20 117/96 H 95 Anesthesia: General Mental Status: Awake Pain Control: Satisfactory Nausea/Vomiting: None Hydration: Adequate Anesthesia-Related Issues: No Anes. Related Issues
== END 2020-10-20 13:25 | disposition home or self-care (01) | DRG 791 ==
LOC: HO.ED 22:59 → HO.EDOVER 10-19 03:51 → HO.S3 10-19 08:22
PROVIDERS: Internal Medicine Gastroenterology; Physician Assistant; Admitting Provider Hospitalist; Emergency Provider Student in an Organized Health Care Education/Training Program; PCP Internal Medicine; Visit Provider Internal Medicine
PROC: 0FPB8DZ Removal of Intraluminal Device from Hepatobiliary Duct, Via Natural or Artificial Opening Endoscopic (ICD-10-PCS; CPT 43260; principal; 2020-10-19 13:30)
DX: T85.520A Displacement of bile duct prosthesis, initial encounter (principal); K83.1 Obstruction of bile duct; F17.210 Nicotine dependence, cigarettes, uncomplicated; R74.01 Elevation of levels of liver transaminase levels; Z71.6 Tobacco abuse counseling; Z20.822 Contact with and (suspected) exposure to COVID-19; Z79.899 Other long term (current) drug therapy
CPT/HCPCS: 36415; 74177; 80048; 80053; 80076; 83690; 84484; 85025; 85610; 85730; 87635; 88112; 93005; 96374; 96375; 99285; C1769; J1100; J1170; J1610; J1956; J2270; J2405; J3010; Q9967

== ENCOUNTER 2020-11-10 08:05 | Outpatient (REF) | payer BC, SELFPAY | END 2020-11-10 08:06 | disposition home or self-care (01) | LOC: HO.HOSX 08:05 | PROVIDERS: Visit Provider Orthopaedic Surgery | DX: Z13.89 Encounter for screening for other disorder (principal) ==

== ENCOUNTER 2021-01-18 15:34 | Emergency (ER) | payer BC, SELFPAY ==
--- NOTE | ~2021-01-18 | XR_ITS ---
EXAMINATION: XR LUMBOSACRAL SPINE CLINICAL INFORMATION: Back pain COMPARISON: CT abdomen pelvis 10/18/2020 TECHNIQUE: Three views of the lumbosacral spine. FINDINGS: Degenerative changes are present at L4-L5 and L5-S1. On the superior endplate of L5, there is a mild compression fracture seen. When comparison is made to the prior CT scan from 10/18/2020, there is some mild worsening of appearances suggesting that there is a superimposed acute or subacute process occurring since that time. No bony destructive lesions seen. No other abnormalities are seen. Incidental note made of redemonstration of left lower pole punctate renal calculi. XR/XR lumbar spine 2-3V IMPRESSION: 1. Degenerative changes L4-L5 and L5-S1 with question of compression fracture superior endplate of L5. If confirmation of this diagnosis is necessary, a CT scan could always be performed. 2. Redemonstration of left renal calculi.
[2021-01-18 15:47] VITALS: BP 156/99; PULSE 76; RESP 18; TEMP 36.6; O2SAT 100; BMI 31.0
--- NOTE | 2021-01-18 16:50 | ED.BACK ---
HPI - Back Pain/Injury General Chief Complaint: Back Pain/Injury Stated Complaint: back pain Time Seen by Provider: 01/18/21 16:33 Source: patient Mode of arrival: ambulatory Limitations: no limitations History of Present Illness HPI Narrative: Patient presents to ED for left lower back pain radiating down leg has been occurring for the past month but worse in the past 4 days. Patient states yesterday he lifted something heavy while working for worsening pain. Patient denies any abdominal pain, nausea, vomiting, fever, chills, dysuria, hematuria, or flank pain. Patient denies any recent blunt trauma. Related Data Home Medications Medication Instructions Recorded Confirmed ascorbic acid (vitamin C) [Vitamin 500 mg PO DAILY 10/19/20 10/19/20 C] cholecalciferol (vitamin D3) 25 mcg PO DAILY 10/19/20 10/19/20 multivitamin 1 tab PO DAILY 10/19/20 10/19/20 Previous Rx's Medication Instructions Recorded naproxen 500 mg PO BID PRN #20 tab 01/18/21 oxycodone-acetaminophen [Percocet] 1 tab PO TID PRN #9 tab 01/18/21 Allergies Allergy/AdvReac Type Severity Reaction Status Date / Time gadobutrol [From [facility]] Allergy Mild HIVES Verified 01/18/21 15:49 Review of Systems Review of Systems: Yes all other systems are reviewed and are negative Constitutional: Constitutional: Reports as per HPI and Reports no additional constitutional complaints Eyes: Eyes: Reports as per HPI and Reports no additional eye complaints ENT: Reports system reviewed and no additional complaints, except as documented and Reports as per HPI Cardiovascular: Cardiovascular: Reports as per HPI and Reports no additional cardiovascular complaints Respiratory: Respiratory: Reports as per HPI and Reports no additional respiratory complaints Gastrointestinal: Gastrointestinal: Reports as per HPI and Reports no additional gastrointestinal complaints Genitourinary: Genitourinary: Reports no additional male genitourinary complaints and Reports as per HPI Musculoskeletal: Musculoskeletal: Reports no additional musculoskeletal complaints, Reports as per HPI and Reports back pain Neurologic: Reports system reviewed and no additional complaints, except as documented and Reports as per HPI Psychiatric: Psychiatric: Reports no additional psychiatric complaints and Reports as per HPI PMF Past Medical History Medical History History of pancreatitis Lumbar pain Obesity Right shoulder pain Surgical History History of appendectomy History of biliary duct stent placement Family History Family History Mother No problems noted. Father No problems noted. Social History Social History Household Members: Spouse Housing: Apartment Do you presently have visiting nurse or other home services: No Alcohol intake: current Alcohol intake frequency: 0-2 drinks per day Alcohol type: beer and hard liquor Substance Use Type: Marijuana Advance Directives: No Advance Directives Information Provided: Yes service: No Current occupational status: employed Physical Exam Vital Signs: Vital Signs: Last Vital Signs Temp 98 F 01/18/21 15:47 Pulse 76 01/18/21 15:47 Resp 18 01/18/21 15:47 BP 156/99 H 01/18/21 15:47 Pulse Ox 100 01/18/21 15:47 Body Mass Index 31.0 Const: General: cooperative, healthy appearing, comfortable, no acute distress, well developed, alert, awake and Physically active Orientation/consciousness: patient oriented x3 HENMT: Head: Yes normal to inspection, Yes No palpable skull fracture present, Yes normocephalic and Yes atraumatic Eyes: General: appearance normal, both eyes and all related structures Neck: Neck: Yes normal visual inspection, Yes full ROM, Yes no lymphadenopathy, Yes no meningeal signs, Yes trachea midline, Yes supple and No tender Chest: Chest palpation & inspection: normal inspection of the chest and normal palpation of entire chest wall Resp: Effort & Inspection: normal respiratory effort and able to speak in complete sentences Auscultation: clear to auscultation bilaterally Cardio: Jugular venous distension: no JVD Heart sounds: S1 normal heart sound present and S2 normal heart sound present GI: Inspection: Yes normal to inspection and No abdominal wall ecchymosis Palpation (GI): Soft to palpation, not firm, nontender, no guarding and not rigid : General: No CVA tenderness and Yes no CVA tenderness Back/Spine/Pelvis: Back: no CVA tenderness, No CVA tenderness and back tenderness (Lumbar) Skin: General skin exam: no rashes or lesions noted and elasticity normal Neuro: General: patient oriented x3, gait normal, no meningeal signs and CN's II-XI intact bilaterally Cranial nerves: Yes CN's II-XII intact bilaterally Extrem: General: Yes normal to inspection and Yes full ROM Psych: Appearance: grossly normal, well kempt and not disheveled Course Course Course Narrative: Patient have lumbar spine x-ray and given pain medication. Reevaluation(s) Reevaluation #1: x-ray show arthritis and compression fracture. Patient will be discharged with pain meds. Time: 17:33 MDM - Back Pain/Injury MDM Narrative Medical decision making narrative: arthritis per compression fracture Discharge Plan Discharge Clinical Impression: Closed compression fracture of L5 vertebra, Lumbar radiculopathy Patient Disposition: Home, Self-Care Instructions: Vertebral Compression Fracture (ED), Lumbar Radiculopathy (ED) Additional Instructions: return to ED for worsening pain, abdominal pain, nausea, vomiting, fever, chills, flank pain, dysuria, hematuria, urinary/ bowel incontinence, paralysis of lower extremities, or any other concerning symptoms. Prescriptions: New naproxen 500 mg tablet 500 mg PO BID PRN (Reason: pain) Qty: 20 RF: 0 oxycodone-acetaminophen [Percocet] 5-325 mg tablet 1 tab PO TID PRN (Reason: pain (scale score 7-10)) Qty: 9 RF: 0 No Action multivitamin Tablet 1 tab PO DAILY RF: 0 ascorbic acid (vitamin C) [Vitamin C] 500 mg Tablet 500 mg PO DAILY RF: 0 cholecalciferol (vitamin D3) 25 mcg (1,000 unit) Tablet 25 mcg PO DAILY RF: 0 Referrals: Ro Paul MD [Primary Care Provider] - 2 days (Lumbar compression fracture ( l5)) Stand Alone Forms: Work/School Release Print Language: Luxembourgish
[2021-01-18] MEDS: Cyclobenzaprine HCl 10 MG TABLET PO (16:52)
[2021-01-18] MEDS: Ibuprofen 800 MG TABLET PO (16:52)
== END 2021-01-18 18:06 | disposition home or self-care (01) ==
PROVIDERS: Emergency Provider Emergency Medicine Emergency Medical Services; PCP Internal Medicine
DX: S32.059A Unspecified fracture of fifth lumbar vertebra, initial encounter for closed fracture (principal); M54.16 Radiculopathy, lumbar region; X50.0XXA Overexertion from strenuous movement or load, initial encounter; Y93.9 Activity, unspecified; Y92.89 Other specified places as the place of occurrence of the external cause; Y99.0 Civilian activity done for income or pay
CPT/HCPCS: 72100; 99283; 99284

== ENCOUNTER 2023-10-21 14:23 | Outpatient (AMB) | payer OTHER, SELFPAY ==
[2023-10-21 14:25] VITALS: BP 140/96; BMI 35.4
--- NOTE | 2023-10-21 14:25 | MHC.PC.OV ---
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 Accompanied by: Self / Same As Patient Allergies gadobutrol [From [facility]] Allergy (Mild, Verified 10/21/23 14:47) HIVES Medication List - Last Reconciled 10/21/23 by Ro Hopper MD No Known Home Meds Tobacco use date assessed: 10/21/23 Dental Screening Dental Screen Date: 10/21/23 Did you have a dental visit in the last 12 months?: No Did you have a dental problem in the last 6 months where you did not have access to dental care?: No Was dental information given to patient?: Patient has dentist HPI HPI Comments History of Present Illness Details This is a 38-year-old male that comes for his physical exam. No chest pain or shortness of breath. He is obese and was advised to diet and exercise. [facility] Medical History Encounter for physical examination Lumbar pain Right shoulder pain History of pancreatitis Obesity Surgical History History of appendectomy History of biliary duct stent placement Family History Mother No problems noted. Father No problems noted. Social History Household Members: Spouse Housing: Apartment Do you presently have visiting nurse or other home services: No Alcohol intake: current Alcohol intake frequency: a few times a week Alcohol type: beer and hard liquor Comment: sleeping Patient Tobacco Use Status: Former Tobacco user Tobacco use type: Cigarette Cigarettes Per Day: 10 e-Cigarette/Vaping Use: Currently Using Second Hand Smoke Exposure: No Substance Use Type: Marijuana service: No Current occupational status: employed Current occupational exposures/hazards: No Cognitive needs: No Hearing needs: No Vision needs: No Questionnaire PHQ-9 Over the last 2 weeks, how often have you been bothered by any of the following problems? 1. Little interest or pleasure in doing things: not at all 2. Feeling down, depressed, or hopeless: not at all 3. Trouble falling or staying asleep, or sleeping too much: not at all 4. Feeling tired or having little energy: not at all 5. Poor appetite or overeating: not at all 6. Feeling bad about yourself - or that you are a failure or have let yourself or your family down: not at all 7. Trouble concentrating on things, such as reading the newspaper or watching television: not at all 8. Moving or speaking so slowly that other people could have noticed. Or the opposite - being so fidgety or restless that you have been moving around a lot more than usual: not at all 9. Thoughts that you would be better off or of hurting yourself in some way: not at all Total score: 0 Depression Screening Interpretation: Negative Depression Screening Done: Yes 07765 - PHQ-9 Billing: Yes Source: Developed by Drs. Prashanth Alvarez, Kelly Luevano, Frank Chen and colleagues, with an educational magda from [employer]. Thrive Questionnaire Date Thrive assessed: 10/21/23 I am a: Patient What is your living situation today?: I have a steady place to live Within the past 12 months, did the food you bought not last and you didn't have the money to get more?: Never true Within the past 12 months, did you worry whether your food would run out before you got money to buy more?: Never true Do you have trouble paying for medicines?: No Do you have trouble getting transportation to medical appointments?: No Do you have trouble paying your heating and electricity bill?: No Do you have trouble taking care of your child, family member or friend?: No Do you have trouble with day-to-day activities such as bathing, preparing meals, shopping, managing finances, etc.?: No Are you currently unemployed and looking for a job?: No Are you interested in more education?: No Please select the resources that you would like help with: None Currently or been in a relationship where the following occur: no concerns reported THRIVE Score: 0 AUDIT C Alcohol Use Questionnaire (AUDIT-C) 1. How often do you have a drink containing alcohol?: Monthly or less 2. How many drinks containing alcohol do you have on a typical day when you are drinking?: 1 or 2 3. How often do you have six or more drinks on one occasion?: Never Total Score: 1 NARA-7 AMB Questionnaire NARA-7 Date NARA - 7 assessed: 10/21/23 Feeling nervous, anxious, or on edge: 0 = Not at all Not being able to stop or control worryin = Not at all Worrying too much about different things: 0 = Not at all Trouble relaxin = Not at all Being so restless that it is hard to sit still: 0 = Not at all Becoming easily annoyed or irritable: 0 = Not at all Feeling afraid as if something awful might happen: 0 = Not at all Total NARA-7 score (0-4 normal; 5-9 mild; 10-14 moderate; 15-21 severe): 0 Source: Developed by Drs. Prashanth Alvarez, Kelly Luevano, Frank Chen and colleagues, with an educational magda from [employer]. NARA-7 Assessment Billing NARA-7 Assessment Tool: NARA-7 Assessment 95254 Review of Systems Const All systems reviewed & are unremarkable except as noted in HPI and below Eyes Reports no additional complaints, Denies change in vision and Denies other visual disturbances Card Denies chest pain at rest, Denies chest pain with activity, Denies edema, Denies irregular heart rhythm, Denies claudication, Denies dyspnea, Denies dyspnea on exertion, Denies orthopnea, Denies paroxysmal nocturnal dyspnea and Denies slow heart rate Resp Denies cough, Denies dyspnea and Denies dyspnea on exertion GI Denies abdominal pain, Denies change in bowel habits, Denies excessive flatus, Denies nausea and Denies vomiting Denies urinary hesitancy, Denies urinary incontinence and Denies urinary urgency Musc Denies abnormal gait, Denies atrophy, Denies deformity and Denies limited range of motion Skin/Breast Denies bleeding lesions, Denies changing lesions and Denies rash Neuro Denies abnormal gait and Denies lack of coordination Physical exam (Primary Care) Vital Signs: Last Vital Signs BP 140/96 H 10/21/23 14:25 BMI result Body Mass Index 35.4 Tobacco/Smoking Status: Tobacco use Status Tobacco use date assessed 10/21/23 10/21/23 14:31 Patient Tobacco Use Status Former Tobacco user 10/21/23 14:31 Tobacco use type Cigarette 10/21/23 14:31 e-Cigarette/Vaping Use Currently Using 10/21/23 14:31 PHQ-9: PHQ-9 Score PHQ-9: Total score 0 10/21/23 14:50 Depression Screening Interpretation: Negative Thrive Assessment: Date of Thrive Assessment Date Thrive assessed 10/21/23 10/21/23 14:31 Currently or been in a relationship where the following occur: no concerns reported Const Orientation/consciousness: patient oriented x3 HENMT Head: Yes normal to inspection, Yes normocephalic and Yes atraumatic Ears: external ears normal Eyes General: appearance normal, both eyes and all related structures Eyelids: Yes eyelids normal Conjunctivae: conjunctivae normal Neck Neck: Yes normal visual inspection and Yes supple Resp Effort & Inspection: normal respiratory effort Auscultation: clear to auscultation bilaterally Cardio Jugular venous distension: no JVD Rate: regular rate Rhythm: regular rhythm Heart sounds: S1 normal heart sound present and S2 normal heart sound present GI Inspection: Yes normal to inspection Palpation (GI): Soft to palpation and nontender Auscultation: normal bowel sounds Skin General skin exam: no rashes or lesions noted Neuro General: patient oriented x3 and no focal motor deficits Extrem General: Yes full ROM Psych Appearance: grossly normal Assessment and Plan Assessment & Plan (1) Encounter for physical examination: Code(s): Z00.00 - Encounter for general adult medical examination without abnormal findings Plan: Repeat in a year. Orders: Orders Lipid Panel Today Z00.00 - Encounter for general adult medical examination without abnormal findings Comprehensive [place]. Panel Fast Today Z00.00 - Encounter for general adult medical examination without abnormal findings Complete Blood Count Auto Diff Today E66.9 - Obesity, unspecified Thyroid Stimulating Hormone Today E66.9 - Obesity, unspecified Magnesium Today R25.2 - Cramp and spasm Coding Level of Care Code Est Pt Prev Care 18-39y(84341) Diagnoses Encounter for physical examination Z00.00 Additional Codes NARA-7 Assessment Billing - NARA-7 Assessment Tool: NARA-7 Assessment 47428 ([id number]) Time Spent (min) 32
[2023-10-21 15:16] VITALS: BP 140/90
== END 2023-10-21 14:56 | disposition home or self-care (01) ==
PROVIDERS: Visit Provider Internal Medicine
DX: Z00.00 Encounter for general adult medical examination without abnormal findings (principal)
CPT/HCPCS: 99395

== ENCOUNTER 2023-11-28 11:04 | Outpatient (REF) | payer OTHER, SELFPAY ==
[2023-11-28 11:20] LABS: MANUAL DIFF FLAG NO
[2023-11-28 11:33] LABS: Basophils Percent Auto 0.3 % (0-2); Eosinophils Absolute Auto 0.2 X10*3/uL (0.0-0.4); Eosinophils Percent Auto 3.1 % (0-4); Hematocrit 47.7 % (42.0-52.0); Hemoglobin 16.2 g/dl (14.0-18.0); Imm Gran Abs Auto 0.01 X10*3/uL (0.00-0.03); Imm Gran Pct Auto 0.1 % (0.0-0.4); Lymphocytes Absolute Auto 2.6 X10*3/uL (1.2-4.9); Lymphocytes Percent Auto 37.5 % (20-40); Mean Corpuscular Hemoglobin 28.3 pg (27.0-33.0); Mean Corpuscular Volume 83.4 fL (80.0-98.0); Mean Platelet Volume 8.5 fL (9.4-12.4); Monocytes Absolute Auto 0.7 X10*3/uL (0.1-1.2); Monocytes Percent Auto 10.7 % (2-11); Neutrophils Absolute Auto 3.3 x10*3/uL (2.0-8.3); Neutrophils Percent Auto 48.3 % (45-73); Platelet Count 207 X10*3/uL (160-400); Red Blood Count 5.72 X10*6/uL (4.60-5.80); Red Cell Distribution Width 12.4 % (11.0-16.0); White Blood Count 6.8 X10*3/uL (4.8-10.8)
[2023-11-28 12:32] LABS: Alanine Aminotransferase 53 U/L (0-40); Albumin Level 4.4 g/dL (3.5-5.0); Alkaline Phosphatase 68 U/L (39-117); Anion Gap 9 (12-20); Aspartate Amino Transferase 39 U/L (5-37); Bilirubin Total 0.8 mg/dL (0.0-1.0); Blood Urea Nitrogen 17 mg/dL (9-16); Calcium 9.3 mg/dL (8.4-10.2); Carbon Dioxide 32 mmol/L (22-29); Chloride 104 mmol/L (96-108); Cholesterol 182 mg/dL (<200); Estimated Glomerular Filt Rate > 60; Glucose Fasting 112 mg/dL (60-99); HDL Cholesterol 39 mg/dL (>40); LDL Cholesterol Calculated 116 mg/dL (<100); Magnesium 2.1 mg/dL (1.6-2.6); Sodium 141 mmol/L (135-145); Thyroid Stimulating Hormone 1.94 uIU/mL (0.32-4.0); Total Protein 7.7 g/dL (6.5-8.0); Triglycerides 138 mg/dL (<150)
== END 2023-11-28 11:05 | disposition home or self-care (01) ==
LOC: HO.LAB 11:04
PROVIDERS: Visit Provider Internal Medicine
DX: Z00.00 Encounter for general adult medical examination without abnormal findings (principal); E66.9 Obesity, unspecified; R25.2 Cramp and spasm
CPT/HCPCS: 36415; 80053; 80061; 83735; 84443; 85025